=== PATIENT | female | born 1950 | race Caucasian/White ===

== ENCOUNTER → 2017-04-30 | Outpatient (CLI) | payer OTHER ==
[~2017-04-30] MED LIST: ALBUTEROL17 G1 INH; IMODIUM2 MG PO; TYLENOL325 M1 PO
--- NOTE | ~2017-04-30 | BD1 ---
[facility] A Service of [facility] RADIOLOGY TEXT RESULTS PATIENT: ESTELA JACKSON LOCATION: [facility] : 46 UNIT #: [id number] AGE: [address]: Mary De La Torre MD SEX: F ORDER DR: [id number] [facility] [address] [place], [place] [address] [id number] O MR#: [id number] Acc #: [id number] NAME: ESTELA JACKSON : 1950 SEX: F STUDY DATE/TIME: 04/30/2017 12:06 UNIT: [facility] ROOM: STUDY DESCRIPTION: BD Dexa Bone Dens 1+ Site Attending Physician: Mary De La Torre M.D. Referring Physician: Mary De La Torre M.D. Ordering Physician: Mary De La Torre M.D. Primary Care Physician: Mary De La Torre M.D. MEDICAL IMAGING REPORT This report is preliminary unless electronic signature is present EXAM DXA scan, 04/30/17. HISTORY Status post menopause with no hormone replacement therapy. Osteopenia. Rheumatoid arthritis. Thyroid medication for 2 years. Smoking history for 20 years. FINDINGS Bone mineral density in the lumbar spine from L1 through L4 is 0.526 g/cm2 which is 4.7 standard deviations below the mean when compared to the young adult reference population which is characteristic of osteoporosis. This is 2.7 standard deviations below the mean when compared to the age-matched population. Compared with 03/18/15, there has been an increase in bone mineral density in the lumbar spine of 2.3%. Bone mineral density in the left femoral neck was 0.411 g/cm2 which is 3.9 standard deviations below the mean when compared to the young adult reference population which is characteristic of osteoporosis. This is 2.2 standard deviations below the mean when compared to the age-matched population. Compared with 03/18/15 there has been an increase in bone mineral density in the left hip of 7.2%. IMPRESSION Bone mineral density in the lumbar spine and left hip characteristic of osteoporosis. Compared with 03/18/15, there has been an increase in bone mineral density in the lumbar spine and the left hip. Dictated by... Wilbert Pascal M.D. THIS IS AN ELECTRONICALLY VERIFIED REPORT Wilbert Pascal M.D. at 05/03/2017 8:25 AM EMILY/nilam [facility] A Service of [facility] RADIOLOGY TEXT RESULTS PATIENT: ESTELA JACKSON LOCATION: [facility] : 46 UNIT #: [id number] AGE: [address]: Mary De La Torre MD SEX: F ORDER DR: TD: 04/30/2017 21:42 JOB #: [id number] MEDICAL IMAGING REPORT Page 1 of 1 COPY
== END | disposition home or self-care (01) ==
LOC: CWCC 11:30
DX: N95.2 Postmenopausal atrophic vaginitis (principal); M81.0 Age-related osteoporosis without current pathological fracture; Z88.7 Allergy status to serum and vaccine
CPT/HCPCS: 77080